=== PATIENT | female | born 1980 | race Caucasian/White ===

== ENCOUNTER 2017-11-26 05:45 | Day surgery (SDC) | payer BC ==
[~2017-11-26] VITALS: Ht 182.9 cm; Wt 127.0 kg
[~2017-11-26 05:45] MED LIST: ADVAIR 250-501 EACH INH; CEPHALEXIN500 MG PO; CIPROFLOXACIN500 MG PO; EPIPEN 2-P0.3 MG/0.3 IM; FLUOXETINE HCL40 MG PO; LEXAPRO5 MG PO; MONO-LINYAH1 EACH PO; NORCO 5-325 TA1 EACH PO; PHENDIMETRAZIN105 MG PO; PREDNISONE20 MG PO; PROZAC40 MG PO; SINGULAIR10 MG PO
[2017-11-26] MEDS ORDERED: ADVIL200 MG PO (05:55)
--- NOTE | 2017-11-26 10:22 | NUR ---
11/26/17 1022 Yenni Luo 1012 PT ARRIVED IN PACU WITH ORAL AIRWAY IN PLACE. OXYGEN DECREASED TO 6L VIA MASK WITH SATS 100%. 1014 ORAL AIRWAY REMOVED. NO C/O'S.
--- NOTE | 2017-11-26 11:21 | NUR ---
COLD WASH CLOTH AND CARRIE HUGGER ON COOL. PATIENT IS DIAPHORETIC AND REPORTS "I'M SO HOT". SPOUSE @ BS. ICED WATER GIVEN. CALL LIGHT W/IN REACH.
--- NOTE | 2017-11-26 12:28 | NUR ---
PT UP TO BR W/RN STANDBY. PT AMBULATES WELL AND CONTINUES TO DENY DESIRE FOR PAIN MEDICINE. PATIENT REPORTS SHE WAS ABLE TO VOID, BUT "MISSED THE HAT". PT REQ DC HOME. JELLO GIVEN. PT EATS THE JELLO AND TOLERATES THAT WELL.
[2017-11-26] MEDS ORDERED: PERCOCET 5-3251 EACH PO (12:38)
[2017-11-26] MEDS ORDERED: ZOFRAN ODT4 MG PO (12:38)
--- NOTE | 2017-11-26 12:50 | NUR ---
DC INSTRUCTIONS GIVEN TO PATIENT IN PRESENCE OF SPOUSE AND THEY BOTH VERBALIZE UNDERSTANDING. PT DRESSES SELF AND TRANSFERS HERSELF INTO THE WC AND HER PERSONAL VEHICLE AND DOES THAT WELL.
--- NOTE | 2017-12-02 07:54 | OR ---
[facility] [address], [place] [address] Signed DATE OF OPERATION: 11/26/2017 SURGEON: Rachel Gomez MD MOTION PICTURE ACTOR: Caleb Salas MD PREOPERATIVE DIAGNOSES: Menorrhagia, pelvic pain, and dysmenorrhea. POSTOPERATIVE DIAGNOSES: Menorrhagia, pelvic pain, and dysmenorrhea with endometriosis, mild adhesions. PROCEDURES: Total laparoscopic hysterectomy, bilateral salpingectomy, fulguration of endometriosis, lysis of adhesions, and cystoscopy. ANESTHESIA: General ET. ESTIMATED BLOOD LOSS: 100 mL. DRAINS: Oh catheter. INDICATIONS AND FINDINGS: The patient is a 37-year-old female 2, para 1-1-0-3, who has been having increasing problems with menorrhagia and pelvic pain as well as dysmenorrhea. She does not tolerate hormone therapy well and did not do well on control pills or the Mirena. At this point, she desires definitive treatment. At the time of surgery, exam under anesthesia was normal. At the time of laparoscopy, she had mild adhesions of the left tube and ovary to the sigmoid. There was a single adhesion of the right tube to the cecal area. There are mild adhesions of the bladder to the anterior uterine wall following her previous section. She also had endometriosis over the anterior cul-de-sac and on the left tube and left cul-de-sac. DESCRIPTION OF PROCEDURE: The patient was prepped and draped in the dorsal lithotomy position. A weighted speculum was placed and the anterior lip of the cervix was visualized and grasped with a Electronically Signed By: RACHEL GOMEZ MD 12/02/17 0754 PATIENT NAME: SHELBY NGUYỄN OPERATIVE REPORT DATE OF : 82 REPORT #: [id number] PHYSICIAN: RACHEL GOMEZ MD PCP: DANIEL GEE PAC REPORT IS CONFIDENTIAL AND NOT TO BE RELEASED WITHOUT AUTHORIZATION [facility] [address], [place] [address] Signed single-tooth tenaculum. The cavity sounded to 9 cm. The endocervical canal was then dilated and the VCare was inserted and the balloon inflated at the fundus. The tenaculum and speculum removed and the cup was fitted over the cervix and a locking cap was fitted into place as well. Gloves were changed and attention was directed above. The infraumbilical area was injected with 0.5% Marcaine plain. An incision was made with a knife and then each layer was serially elevated and incised with the Metzenbaum scissors until the fascia could finally be identified. The patient is obese. The fascia was grasped, opened and sutures of 0 Vicryl were placed as stay sutures. The peritoneum was then opened bluntly. The Jovan cannula was then placed and tied into place. The balloon was then inflated. Placement of the scope confirmed proper positioning. CO2 was then introduced into the abdomen. Brief examination of the pelvis appeared that the planned procedure was appropriate. Secondary ports were placed far laterally just below the umbilicus. There was no ability to transilluminate the abdominal wall. The areas were injected with 0.5% Marcaine plain. Incision made with a knife and the trocars placed under direct vision. The left port was a 5 mm port and the right hand side was a Veress needle followed by the expanding port. The pelvis was then visualized and the procedure begun. The LigaSure [place] device was used to serially coagulate the patient's left tube, left round ligament, and left uteroovarian ligament. Following this, the anterior leaf of the peritoneum was incised allowing for partial bladder flap. The peritoneum posteriorly was also incised allowing the peritoneum to drop off the posterior cuff. There were a large amount of blood vessels and these were coagulated and divided in several levels. Further dissection was done both anteriorly and posteriorly at this point. Following this, attention was directed to the patient's right side. The patient's right tube, utero-ovarian pedicle, and round ligament were serially coagulated and divided. The anterior leaf of the peritoneum was incised allowing the bladder flap to further drop off. Peritoneum was dissected posteriorly as well. The uterine vessels were skeletonized and coagulated multiple times. Further dissection was done both anteriorly and posteriorly as there was a fair amount of fat in the retroperitoneal space. Finally, the anterior cup could be identified. Further dissection was done posteriorly as well, which was more difficult, but it was felt that the cup was probably could be palpated at that time. The abdomen was then copiously irrigated and inspected and the decision was made to proceed with removal of the specimen. This was begun actually anteriorly because this area was much easier to identify and started towards the patient's right side and to come across anteriorly to the left and then around posteriorly. The remaining specimen was then removed anterior to posterior from the right and wrapping around posteriorly. The Sonicision device was used for this. Following this, the specimen was removed vaginally. A glove packed with a lap tape was placed into the vagina to allow the pneumoperitoneum to reaccumulate. Gloves were changed again and the abdomen was then copiously irrigated and inspected. There was some bleeding points near the left uterine vessels and these were coagulated using the Electronically Signed By: RACHEL GOMEZ MD 12/02/17 0754 PATIENT NAME: SHELBY NGUYỄN OPERATIVE REPORT DATE OF : 82 REPORT #: [id number] PHYSICIAN: RACHEL GOMEZ MD PCP: DANIEL GEE PAC REPORT IS CONFIDENTIAL AND NOT TO BE RELEASED WITHOUT AUTHORIZATION [facility] [address], [place] [address] Signed LigaSure device. The cuff otherwise appeared to be hemostatic. The Endo Stitch was then used to close the vaginal cuff. This was begun from the patient's right uterosacral ligament incorporating the vaginal mucosa both posteriorly and anteriorly and coming across to the patient's left uterosacral ligament and then back to the center. Good hemostasis was noted. The tubes were then removed. The [place] device was used for this as well. The patient's right tube was serially divided along the mesosalpinx and the small adhesion of the tube to the cecum was also incised. The specimen was removed through the 10-port on the patient's right side. The patient's left tube was also removed in the same manner though was a little bit more difficult as there was a tubal cyst at the distal portion next of the ovary. This was serially coagulated and divided along the mesosalpinx and removed through the right hand port as well. There were some bleeding points along the upper aspect of the ovary and this was also controlled with the LigaSure device. The abdomen was then again copiously irrigated and inspected and there was no evidence of ongoing bleeding. The spatula tip cautery was then used to treat the endometriosis over the anterior peritoneum. The other areas had been excised with the case. The patient was placed in reverse Trendelenburg, allowing for more fluid to come down into the pelvis and then this was also removed as the patient was slowly placed back into Trendelenburg. Following this, it was felt that the procedure was complete and the instruments were removed after allowing as much CO2 as possible to escape. The fascial incision of the umbilicus was reidentified and closed with a running suture of 0 Vicryl. The deep space of the umbilicus was closed with a separate suture of 0 Vicryl just because of the depth of the incision. The skin incisions were closed with subcuticular sutures of 3-0 Vicryl Rapide. Attention was directed down below and the glove was removed from the vagina. The Oh catheter was removed. Cystoscopy was done using the 30-degree scope. The patient had received IV fluorescein. The bladder was thoroughly inspected and there was no evidence of any injury. There was a small bruise posteriorly, but no sutures or other compromise noted. The ureters were seen to freely egress clear urine. No fluorescein was seen at this point. Following this, the bladder was drained and cystoscopy complete. The Oh catheter was replaced. All sponge and needle counts were correct. She tolerated the procedure well and was taken to the recovery room in good condition. Rachel Gomez MD PJW/MODL Electronically Signed By: RACHEL GOMEZ MD 12/02/17 0754 PATIENT NAME: SHELBY NGUYỄN OPERATIVE REPORT DATE OF : 82 REPORT #: [id number] PHYSICIAN: RACHEL GOMEZ MD PCP: DANIEL GEE PAC REPORT IS CONFIDENTIAL AND NOT TO BE RELEASED WITHOUT AUTHORIZATION [address] [address] Signed /[id number] cc: Caleb Salas MD Copies: CALEB SALAS MD ~ Electronically Signed By: RACHEL GOMEZ MD 12/02/17 0754 PATIENT NAME: SHELBY NGUYỄN OPERATIVE REPORT DATE OF : 82 REPORT #: [id number] PHYSICIAN: RACHEL GOMEZ MD PCP: DANIEL GEE REPORT IS CONFIDENTIAL AND NOT TO BE RELEASED WITHOUT AUTHORIZATION
== END 2017-11-26 12:50 | disposition home or self-care (01) ==
LOC: DS 05:45
PROVIDERS: Obstetrics & Gynecology
PROC: 0UT94ZZ Resection of Uterus, Percutaneous Endoscopic Approach (ICD-10-PCS; principal; 2017-11-26 06:45)
PROC: 0UT74ZZ Resection of Bilateral Fallopian Tubes, Percutaneous Endoscopic Approach (ICD-10-PCS; 2017-11-26 06:45)
DX: N87.9 Dysplasia of cervix uteri, unspecified (principal); N72 Inflammatory disease of cervix uteri; N80.0 Endometriosis of uterus; J45.909 Unspecified asthma, uncomplicated; G47.30 Sleep apnea, unspecified; E66.01 Morbid (severe) obesity due to excess calories; E28.2 Polycystic ovarian syndrome; F32.9 Major depressive disorder, single episode, unspecified; Z68.37 Body mass index [BMI] 37.0-37.9, adult; Z79.899 Other long term (current) drug therapy
CPT/HCPCS: 00840; J0330; J0694; J1100; J1644; J1885; J2250; J2405; J2704; J2765; J3010; J7120